=== PATIENT | female | born 2000 | race Caucasian/White ===

== ENCOUNTER 2019-06-06 20:50 | Emergency (ER) | payer OTHER ==
[~2019-06-06] VITALS: Ht 167.6 cm; Wt 118.2 kg
[2019-06-06] MEDS ORDERED: SPRINTEC 35 MCG1 TAB PO (20:57)
[2019-06-06 20:58] VITALS: BP 150/94; TEMP 101.8
[2019-06-06] MEDS ORDERED: ZITHROMAX Z PA250 MG PO ×3 (22:05→22:08)
[2019-06-06] MEDS ORDERED: TUSS PO (22:05)
[2019-06-06 22:20] VITALS: PULSE 94
== END 2019-06-06 22:18 | disposition home or self-care (01) ==
LOC: COL.ER 20:50
DX: J20.9 Acute bronchitis, unspecified (principal)
CPT/HCPCS: J1885